=== PATIENT | male | born 1975 | race African-American/Black ===

== ENCOUNTER 2021-07-10 04:33 | Emergency (ER) | payer SELFPAY ==
[~2021-07-10] VITALS: Ht 177.8 cm; Wt 100.0 kg
[2021-07-10] MEDS ORDERED: ONDANSETRON HCL 4MG/2ML INJ IV STA (04:38)
[2021-07-10] MEDS ORDERED: NICARDIPINE 100 MG in SODIUM CHLORIDE 0.9% 60 ML IV ONE (04:45)
[2021-07-10] MEDS ORDERED: NITROGLYCERIN OINT 1GM/INCH UDPKT TD ONE (04:45)
[2021-07-10] MEDS ORDERED: LABETALOL 5MG/ML SYR 20 MG/4 ML SYRINGE IV NR (04:45)
[2021-07-10] MEDS ORDERED: ONDANSETRON HCL 4MG/2ML INJ IV NR (04:45)
[2021-07-10] MEDS ORDERED: FUROSEMIDE 40MG/4ML VIAL IV ONE (04:45)
[2021-07-10] MEDS ORDERED: LABETALOL HCL 20MG/4ML CARPUJECT IV ONE (04:45)
[2021-07-10 05:20] LABS: BASOPHILS % 0.6 % (0.0-2.0); EOSINOPHILS % 2.2 % (0.0-5.0); HEMOGLOBIN. 13.1 g/dL (14.0-18.0); MEAN CORPUSCULAR HEMOGLOBIN 28.6 pg (28.0-32.0); MEAN CORPUSCULAR VOLUME 89.7 fL (80.0-94.0); MEAN PLATELET VOLUME 7.8 fl (7.4-10.4); MONOCYTES % 13.4 % (2.0-8.0); NEUTROPHILS % 50.8 % (40.0-76.0); PLATELET 333 x1000/uL (130-400); RED BLOOD CELL COUNT 4.57 mill/uL (4.7-6.1); RED CELL DISTRIBUTION WIDTH 14.8 % (11.6-14.6)
[2021-07-10 05:27] LABS: CHLORIDE 104 mEq/L (98-107)
[2021-07-10] MEDS ORDERED: ONDANSETRON HCL 4MG/2ML INJ IV PRN (07:30)
[2021-07-10] MEDS ORDERED: MAGNESIUM/ALUMINUM HYDROXIDE/SIMETHICONE 30ML UDC PO PRN (07:30)
[2021-07-10] MEDS ORDERED: IPRATROPIUM/ALBUTEROL 0.5-3(2.5)MG/3ML NEB NEB PRN (07:30)
[2021-07-10] MEDS ORDERED: NITROGLYCERIN 0.4MG TABLET SL SL PRN (07:30)
[2021-07-10] MEDS ORDERED: ACETAMINOPHEN 325MG TABLET PO PRN (07:30)
[2021-07-10] MEDS ORDERED: CLONIDINE 0.1MG TABLET PO PRN (07:30)
[2021-07-10] MEDS ORDERED: ZOLPIDEM TARTRATE 5MG TABLET PO PRN (07:30)
[2021-07-10] MEDS ORDERED: DOCUSATE SODIUM 100MG CAPSULE PO PRN (07:30)
[2021-07-10] MEDS ORDERED: NICARDIPINE 50 MG in SODIUM CHLORIDE 0.9% 230 ML IV PRN (07:30)
[2021-07-10] MEDS ORDERED: GUAIFENESIN 200MG/10ML SUGAR FREE UDC PO PRN (07:30)
[2021-07-10] MEDS ORDERED: FUROSEMIDE 40MG/4ML VIAL IVP SCH (09:00)
[2021-07-10] MEDS ORDERED: ENOXAPARIN 30MG/0.3ML SYR SUBCUT SCH (09:00)
[2021-07-10] MEDS ORDERED: LISINOPRIL 20MG TABLET PO SCH (09:00)
[2021-07-10] MEDS ORDERED: SPIRONOLACTONE 25MG TABLET PO SCH (09:00)
[2021-07-10] MEDS ORDERED: FAMOTIDINE 20MG TABLET PO SCH (09:00)
[2021-07-10] MEDS ORDERED: AMLODIPINE 10MG TABLET PO SCH (09:00)
[2021-07-10 09:20] LABS: FOLIC ACID (FOLATE) SERUM 10.2 ng/mL (>5.38)
[2021-07-10 09:41] LABS: BG BASE EXCESS 2.3 mmol/L (-2.0-2.0); BG CARBOXYHEMOGLOBIN 0.4 % (0.5-1.5); BG DEOXYHEMOGLOBIN 0.2 % (0.0-5.0); BG HCO3 ACT 27.6 mmol/L (22.0-26.0); BG METHEMOGLOBIN 0.7 % (0.0-1.5); BG OXYGEN SATURATION 99.8 % (92.0-98.5); BG OXYHEMOGLOBIN 98.7 % (94.0-97.0); BG PCO2 44.9 mmHg (35.0-45.0); BG PH 7.406 (7.350-7.450); BG SAMPLE SITE RIGHT RADIAL; BG TOTAL HEMOGLOBIN 14.4 g/dL (12.0-18.0); BG VENT MODE MASK - BIPAP
[2021-07-10] MEDS ORDERED: FUROSEMIDE 20MG/2ML VIAL IVP NR (09:45)
[2021-07-10 10:51] VITALS: BP 141/84
[2021-07-10 12:11] LABS: *AMPHETAMINES SCREEN URINE NEGATIVE (NEGATIVE); *BARBITURATES SCREEN URINE NEGATIVE (NEGATIVE); *BENZODIAZEPINES SCREEN URINE NEGATIVE (NEGATIVE); *COCAINE SCREEN URINE NEGATIVE (NEGATIVE)
[2021-07-10 12:12] LABS: CANNABINOID URINE SCREEN PRESUMTIVE POSITIVE (NEGATIVE); METHADONE URINE SCREEN NEGATIVE (NEGATIVE); OPIATES URINE SCREEN NEGATIVE (NEGATIVE); PHENCYCLIDINE URINE SCREEN NEGATIVE (NEGATIVE)
== END 2021-07-10 11:06 | disposition left against medical advice (07) ==
LOC: ER 04:33 → EDBEDREQSVC 05:40 → EDBEDREQTM 05:40 → EDBEDREQ 05:40 → ER 11:06 → CANBEDREQ 11:20
DX: J96.90 Respiratory failure, unspecified, unspecified whether with hypoxia or hypercapnia (principal); I10 Essential (primary) hypertension
CPT/HCPCS: 36415; 36600; 71045; 80053; 80061; 80305; 82375; 82607; 82746; 82805; 83036; 83540; 83550; 83880; 84484; 85025; 85379; 93005; 93970; 94660; 96374; 96375; 99291; J1940; J2405; J3490; J7050